=== PATIENT | male | born 1950 | race Caucasian/White ===

== ENCOUNTER 2016-12-28 08:42 | Emergency (ER) | payer OTHER | END 2016-12-28 09:50 | disposition home or self-care (01) | LOC: ER 08:42 | DX: M79.652 Pain in left thigh (principal); R20.2 Paresthesia of skin; H92.02 Otalgia, left ear; E11.65 Type 2 diabetes mellitus with hyperglycemia; F43.10 Post-traumatic stress disorder, unspecified; F41.9 Anxiety disorder, unspecified; K21.9 Gastro-esophageal reflux disease without esophagitis; I10 Essential (primary) hypertension; E78.00 Pure hypercholesterolemia, unspecified; F17.210 Nicotine dependence, cigarettes, uncomplicated; Z79.84 Long term (current) use of oral hypoglycemic drugs; Z79.899 Other long term (current) drug therapy ==

== ENCOUNTER 2017-01-03 14:47 | Emergency (ER) | payer SELFPAY | END 2017-01-03 17:30 | disposition home or self-care (01) | LOC: ER 14:47 | DX: M54.16 Radiculopathy, lumbar region (principal); F43.10 Post-traumatic stress disorder, unspecified; F41.9 Anxiety disorder, unspecified; K21.9 Gastro-esophageal reflux disease without esophagitis; I10 Essential (primary) hypertension; E11.9 Type 2 diabetes mellitus without complications; E78.5 Hyperlipidemia, unspecified; F17.210 Nicotine dependence, cigarettes, uncomplicated; Z79.84 Long term (current) use of oral hypoglycemic drugs; Z79.899 Other long term (current) drug therapy ==

== ENCOUNTER 2017-01-11 12:48 | Emergency (ER) | payer OTHER | END 2017-01-11 13:48 | disposition home or self-care (01) | LOC: ER 12:48 | DX: H66.91 Otitis media, unspecified, right ear (principal); H16.139 Photokeratitis, unspecified eye; R21 Rash and other nonspecific skin eruption; R20.2 Paresthesia of skin; F41.9 Anxiety disorder, unspecified; F43.10 Post-traumatic stress disorder, unspecified; E11.9 Type 2 diabetes mellitus without complications; K21.9 Gastro-esophageal reflux disease without esophagitis; E78.5 Hyperlipidemia, unspecified; I10 Essential (primary) hypertension; F17.210 Nicotine dependence, cigarettes, uncomplicated; Z79.84 Long term (current) use of oral hypoglycemic drugs; Z79.899 Other long term (current) drug therapy ==